=== PATIENT | female | born 1940 | race Two or more races ===

== ENCOUNTER → 2021-04-10 | Outpatient (CLI) | payer MEDICARE, MEDICAID ==
[2021-04-10 11:02] LABS: CHLORIDE 105 mEq/L (98-107)
== END | disposition home or self-care (01) ==
LOC: CCL 10:17
PROVIDERS: ATTEND Internal Medicine Cardiovascular Disease
DX: E78.00 Pure hypercholesterolemia, unspecified (principal); E79.0 Hyperuricemia without signs of inflammatory arthritis and tophaceous disease
CPT/HCPCS: 36415; 80053